=== PATIENT | male | born 1995 | race Caucasian/White ===

== ENCOUNTER 2018-02-09 00:48 | Emergency (ER) | payer OTHER ==
[~2018-02-09] VITALS: Ht 177.8 cm; Wt 79.9 kg
[2018-02-09 00:50] VITALS: TEMP 37; Ht 177.8 cm; Wt 79.9 kg
[2018-02-09] MEDS ORDERED: XYLOCAINE 1%/SOD BICARB 20 ML VIAL INFIL ONE (01:15)
[2018-02-09 01:50] LABS: CALCIUM 8.6 mg/dl (8.5-10.1); CREATININE 0.99 mg/dl (0.60-1.40); POTASSIUM 3.4 mmol/L (3.5-5.1)
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
[2018-02-09 03:15] VITALS: BP 117/88; PULSE 112; O2SAT 96
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
== END 2018-02-09 03:17 | disposition home or self-care (01) ==
LOC: EDBD 00:48 → C.EDB 00:49
DX: T51.91XA Toxic effect of unspecified alcohol, accidental (unintentional), initial encounter (principal); S01.01XA Laceration without foreign body of scalp, initial encounter; T76.11XA Adult physical abuse, suspected, initial encounter; Y00.XXXA Assault by blunt object, initial encounter; Z87.891 Personal history of nicotine dependence